=== PATIENT | male | born 1965 | race Caucasian/White ===

== ENCOUNTER 2021-04-05 15:17 | Emergency (ER) | payer OTHER, SELFPAY ==
--- NOTE | ~2021-04-05 | XR_ITS ---
XR wrist LT min 3V DATE: 04/05/2021 15:50 INDICATION: Left wrist pain following injury 2 days ago TECHNIQUE: 4 views COMPARISON: None FINDINGS: No fracture or dislocation, periosteal reaction or bone destruction. IMPRESSION: Negative Reviewed, dictated and finalized at location B. IMPRESSION: Negative
[2021-04-05 15:40] VITALS: BP 171/98; PULSE 88; RESP 16; TEMP 37.1; O2SAT 100
--- NOTE | 2021-04-05 15:47 | ED.UPPEXIN ---
HPI - Extremity Injury (Upper) General Chief Complaint: Extremity Injury, Upper Stated Complaint: left wrist pain Time Seen by Provider: 04/05/21 15:47 Source: patient and RN notes reviewed Mode of arrival: ambulatory Limitations: no limitations History of Present Illness HPI narrative: 56 yo male presents to the [facility] with complaints of left wrist pain for the last 2 days. Patient states that he was trying to hit a locker off his locker at work when he hyperextended dorsiflexion his wrist. Some pain and swelling noted to the dorsal aspect of the hand and wrist. Decreased range of motion secondary to pain. States that the paramedics at work have been applying [employer]. Had been taking Goody's pain reliever Related Data Allergies Allergy/AdvReac Type Severity Reaction Status Date / Time No Known Allergies Allergy Verified 04/05/21 15:56 Review of Systems Review of Systems: All systems reviewed & are unremarkable except as noted in HPI and below Constitutional: Constitutional: Reports no additional constitutional complaints, Denies chills and Denies fever(s) Eyes: Eyes: Reports no additional eye complaints ENT: Reports system reviewed and no additional complaints, except as documented Cardiovascular: Cardiovascular: Reports no additional cardiovascular complaints Respiratory: Respiratory: Reports no additional respiratory complaints Gastrointestinal: Gastrointestinal: Reports no additional gastrointestinal complaints Musculoskeletal: Musculoskeletal: Reports as per HPI Comments: Left wrist pain dorsal aspect Integumentary/Breasts: Skin/Breast: Reports system reviewed and no additional complaints, except as docu Neurologic: Reports system reviewed and no additional complaints, except as documented Psychiatric: Psychiatric: Reports no additional psychiatric complaints Allergic/Immunologic: Allergic/Immunologic: Reports no additional allergic/immunologic complaints PMFSH Past Medical History Medical History No significant medical problems Surgical History Surgical History (Updated 04/05/21 @ 19:26 by Etta Gil) No significant past surgical history Comments At the time of my signature, I reviewed and agree with the nursing past medical, surgical, social, and family history. There is no relevant family history pertinent to the patient complaint. Exam Const: General: healthy appearing, no acute distress and alert Nutritional Appearance: well nourished Orientation/consciousness: patient oriented x3 Limitations: no limitations HENMT: Head: normal to inspection Eyes: Conjunctivae: conjunctivae normal Pupils: Equal, round and reactive pupils present Neck: Neck: normal visual inspection, no lymphadenopathy and no meningeal signs Chest: Chest palpation & inspection: normal inspection of the chest Resp: Effort & Inspection: normal respiratory effort Auscultation: clear to auscultation bilaterally Cardio: Rate: regular rate Rhythm: regular rhythm Back/Spine/Pelvis: Back: no CVA tenderness Skin: General skin exam: normal color Rashes: no rashes Neuro: General: patient oriented x3, moves all extremities, no meningeal signs and no focal motor deficits Speech: normal speech Gait exam (Neuro): Normal gait present Extrem: Left upper extremity: wrist tenderness, swelling, abnormal ROM pain with active ROM and pain with passive ROM, ecchymosis, normal vascular exam and radial pulse present; no unusual warmth, no abrasions, no lacerations and no deformity Hand/finger images: 1. Swelling, bruising noted. Decreased range of motion. No snuffbox tenderness. Psych: Appearance: grossly normal and well kempt Mental Status: mental status grossly normal Affect: normal affect Attitude: cooperative Thought content: Yes Normal thought content present Course Course Emergency Course: Discharge instructions reviewed with patient, as well as provided in
== END 2021-04-05 16:25 | disposition home or self-care (01) ==
PROVIDERS: Emergency Provider Nurse Practitioner
DX: S60.212A Contusion of left wrist, initial encounter (principal); X50.9XXA Other and unspecified overexertion or strenuous movements or postures, initial encounter
CPT/HCPCS: 73110; 99213; G0463

== ENCOUNTER 2025-02-05 16:49 | Emergency (ER) | payer OTHER, SELFPAY ==
[2025-02-05 17:08] VITALS: BP 147/83; PULSE 82; RESP 20; TEMP 36.8; O2SAT 99
--- NOTE | 2025-02-05 18:01 | ECG_ITS ---
Test Date: 2025-02-05 18:10:43 Measurements Intervals [place] Rate: 82 P: 49 MS: 178 QRS: -3 QRSD: 85 T: 46 QT: 337 QTc: 395 Interpretive Statements SINUS RHYTHM EARLY PRECORDIAL R/S TRANSITION LEFT VENTRICULAR HYPERTROPHY AND ST-T CHANGE BASELINE ARTIFACT- I, II, III, AVR, V4-V5 BORDERLINE ECG No previous ECG available for comparison Electronically Signed On 02-05-2025 18:26:59 CDT by Sylvester Lima D.O.
--- NOTE | 2025-02-05 18:02 | ED_ITS ---
HPI - General Adult General Chief complaint: Chest Pain Stated complaint: Chest Wall Pain/High B/P History of Present Illness HPI narrative: 6-year-old male patient presents to the [facility] with complaints of right- sided chest wall pain that has been there for about 2 weeks. Patient states he had this pain a couple of times last year but it went away. Patient states that he noticed his blood pressure has been high as well. Patient states he has been taking his blood pressure today about 3 or 4 times. Patient states he did take an 81 aspirin this morning as well as an 81 mg aspirin this afternoon for the pain. Patient denies taking any thing for the pain prior to today. Patient also mentions that a friend of his that is his same age just had a stroke 2 weeks ago and has been feeling very anxious about it. Patient states he does not have a primary doctor that he goes to bed did get a full physical through his [employer] last year and states he was told that everything looked fine. Related Data Home Medications ?Medication ?Instructions ?Recorded ?Confirmed ?Last Taken ?Type No Home Medications 02/05/25 02/05/25 Unknown History Allergies Allergy/AdvReac Type Severity Reaction Status Date / Time No Known Allergies Allergy Verified 02/05/25 17:01 Review of Systems Review of Systems: CONSTITUTIONAL: Denies fever, chills, or sweats. EYES: Denies visual changes, redness, or discharge. ENT: Denies rhinorrhea, congestion, sore throat, or otalgia. CARDIOVASCULAR: Positive right-sided chest wall pain, denies palpitations, or edema. RESPIRATORY: Denies cough or dyspnea. GASTROINTESTINAL: Denies abdominal pain, nausea, vomiting, or diarrhea. GENITOURINARY: Denies dysuria or hematuria. SKIN: Denies rash or itching. MUSCULOSKELETAL: Denies back pain, joint pain, or myalgia. NEUROLOGIC: Denies headache, numbness, or weakness. PSYCHIATRIC: Denies anxiety or depression. [facility] Past Medical History Medical History No significant medical problems Surgical History Surgical History No significant past surgical history Comments At the time of my signature I agree with nursing past medical history, surgical, social, and family history. There is no relevant family history pertinent to the presenting complaint. Exam Narrative: GENERAL: Well-appearing, well-nourished, and in no acute distress. HEAD: Normocephalic, atraumatic. EYES: PERRLA and EOMI. ENT: Nares clear, no rhinorrhea or epistaxis. Mucous membranes moist. Posterior pharynx with no erythema, tonsillar enlargement, exudates or lesions present. Bilateral TMs are clear no erythema or foreign bodies the canal. NECK: Supple. No lymphadenopathy CHEST: Clear to auscultation. No respiratory distress. Patient does have pain on palpitation to the right side of the chest wall. No ecchymosis or trauma noted. HEART: Regular rate and rhythm. No murmur heard. Normal peripheral pulses. ABDOMEN: Soft, nontender, nondistended, normal active bowel sounds. EXTREMITIES: Normal range of motion. No edema. SKIN: Warm, dry, no rash. NEURO: No focal deficits. Alert and oriented x3. Course Course Level of Care: Express Care Visit Vital Signs Vital signs: Vital Signs Temperature 36.8 C 02/05/25 17:08 Pulse Rate 82 02/05/25 17:08 Respiratory Rate 20 02/05/25 17:08 Blood Pressure 147/83 H 02/05/25 17:08 Pulse Oximetry 99 02/05/25 17:08 Oxygen Delivery Room Air 02/05/25 17:08 Temperature 36.8 C 02/05/25 17:08 Pulse Rate 82 02/05/25 17:08 Respiratory Rate 20 02/05/25 17:08 Blood Pressure 147/83 H 02/05/25 17:08 Pulse Oximetry 99 02/05/25 17:08 Oxygen Delivery Room Air 02/05/25 17:08 Vital signs reviewed. The patient has been informed that they may have pre-hypertension or Hypertension based on a BP reading in the department. I recommend that the patient call the primary care provider listed on their discharge instructions or a physician of their choice this week to arrange follow up for further evaluation of possible pre-hypertension or Hypertension Medical Decision Making MDM Narrative Medical decision making narrative: Discussed with patient that we will go ahead and check an EKG on him today. Discussed with him that I do not think that his chest pain is related to cardiac issues and most likely related to maybe some underlying anxiety or muscular pain. Discussed with patient that if he is concerned about keeping himself healthy and not having a heart attack or stroke it is very important that he finds a primary doctor to follow up with and get his blood work checked yearly. Also discussed with patient the importance of having a good diet avoiding salt, sugar and fried food and processed food. Discussed with him he needs to be eating lots of fruits and vegetables and lean protein. Discussed with patient he can take Tylenol and ibuprofen for his chest wall pain. If the EKG comes back normal most likely will discharge him home have him follow-up with his primary doctor. Differential Diagnosis Differential Diagnosis: Differential diagnosis: STEMI/ACS, AAA, PE, spontaneous pneumothorax, cardiac tamponade, esophageal rupture, pneumonia, GERD, muscle-skeletal pain or trauma, endocarditis, cocaine-related ischemia, pericarditis, URI, bronchitis. Vital Signs Vital Signs: Vital Signs Temperature 36.8 C 02/05/25 17:08 Pulse Rate 82 02/05/25 17:08 Respiratory Rate 20 02/05/25 17:08 Blood Pressure 147/83 H 02/05/25 17:08 Pulse Oximetry 99 02/05/25 17:08 Oxygen Delivery Room Air 02/05/25 17:08 Temperature 36.8 C 02/05/25 17:08 Pulse Rate 82 02/05/25 17:08 Respiratory Rate 20 02/05/25 17:08 Blood Pressure 147/83 H 02/05/25 17:08 Pulse Oximetry 99 02/05/25 17:08 Oxygen Delivery Room Air 02/05/25 17:08 Vital signs reviewed. The patient has been informed that they may have pre-hypertension or Hypertension based on a BP reading in the department. I recommend that the patient call the primary care provider listed on their discharge instructions or a physician of their choice this week to arrange follow up for further evaluation of possible pre-hypertension or Hypertension ECG Data EKG #1: ECG completion date: 02/05/25 ECG completion time: 18:10 Prior ECG tracings: not available for review Interpretation: Sinus rhythm. Left ventricle hyper for tree and ST-T change, voltage criteria plus ST/T abnormally. Abnormal ECG. Unconfirmed report. Vent rate: 82 RI interval: 178 QRS duration: 85 QT/QTC: 337/376 P-R-T axes: 49, -3, 46 Average RR: 725 QTC B: 395 QTC F: 375 Critical Care Time Critical Care Time Critical Care Time: No Discharge Plan Discharge Clinical Impression: Anterior chest wall pain Patient Disposition: Home Condition: Stable Instructions: Antibiotic Form, Chest Wall Pain (ED) Additional Instructions: May take Tylenol ibuprofen as needed for the chest wall pain. Please call the doctor that was referred to you today to establish primary care. Start changing her diet and start eating heart healthy and avoid fried food, salt, sugar. Focus on fruits vegetables and lean protein. If your symptoms worsen including shortness of breath worsening chest pain nausea vomiting or sweating please go to the ER for further evaluation. Patient Language: Wolof Prescriptions: No Action No Home Medications Follow-up/Referrals: Saskia Rainey MD [Physician] - PHYSICIAN,OFFICE ADMINISTRATIVE ASSISTANT [Primary Care Provider] - Time of Disposition: 18:28
== END 2025-02-05 18:41 | disposition home or self-care (01) ==
PROVIDERS: Emergency Provider Nurse Practitioner Family
DX: R07.89 Other chest pain (principal)
CPT/HCPCS: 93005; 99213; G0463